=== PATIENT | female | born 1975 | race Caucasian/White ===

== ENCOUNTER 2018-10-28 23:58 | Emergency (ER) | payer MEDICAID ==
[~2018-10-28] VITALS: Ht 154.9 cm; Wt 86.2 kg
[~2018-10-28 23:58] MED LIST: IBUP200C97 PO
[2018-10-29 00:18] VITALS: BP 133/72
--- NOTE | 2018-10-29 00:28 | NUR ---
PT AMBULATED TO THE RESTROOM.
--- NOTE | 2018-10-29 00:32 | NUR ---
PT AMBULATED BACK TO LOBBYKONSTANTIN
--- NOTE | 2018-10-29 00:33 | NUR ---
FLU SWAB WAS COLLECTED AND LAB TO ICK UP.
--- NOTE | 2018-10-29 02:03 | NUR ---
PT AMBULATED TO BED #7
--- NOTE | 2018-10-29 02:05 | NUR ---
42/F PRESENTS TO ED WITH DAUGHTER, C/O PERSISTENT NONPRODUCTIVE COUGH SINCE 1500. REPORTS SORE THROAT. PT DENIES FEVER/CHILLS, N/V. AOX4, GCS 15, RR EVEN AND UNLABORED. LUNG SOUNDS CLEAR BL. HX ARRYTHMIA; DENIES HX OF ASTHMA, HTN, DM. RX METOPROLOL
--- NOTE | 2018-10-29 02:05 | NUR ---
DR CROOK AT BEDSIDE
[2018-10-29] MEDS ORDERED: ACETAMIN/CODEINE 120/12MG-5ML 5 ML UDC PO ONE (02:10)
[2018-10-29 02:29] VITALS: BP 133/72
--- NOTE | 2018-10-29 02:29 | NUR ---
Patient discharged with v/s stable. Written and verbal after care instructions given and explained by Dr. Londono. Patient alert, oriented and verbalized understanding of instructions. Ambulatory with steady gait. All questions addressed prior to discharge by Dr. Londono. ID band removed by Dr. Londono. Patient advised to follow up with PMD by Dr. Londono. Rx of CODEINE/PROMETHAZINE, LEVAQUIN given by Dr. Londono. Patient educated on indication of medication including possible reaction and side effects by Dr. Londono. Opportunity to ask questions provided and answered by Dr. Londono.
== END 2018-10-29 02:29 | disposition home or self-care (01) ==
LOC: MED 23:58
DX: J20.9 Acute bronchitis, unspecified (principal); E11.9 Type 2 diabetes mellitus without complications; Z88.0 Allergy status to penicillin; Z79.899 Other long term (current) drug therapy; Z90.49 Acquired absence of other specified parts of digestive tract
CPT/HCPCS: 87804; 99283

== ENCOUNTER 2020-08-13 12:41 | Emergency (ER) | payer MEDICAID ==
[~2020-08-13] VITALS: Ht 149.9 cm; Wt 71.2 kg
[2020-08-13 12:52] VITALS: BP 112/66
[2020-08-13 12:56] VITALS: BP 112/66
--- NOTE | 2020-08-13 12:57 | NUR ---
triaged and in tent 01
--- NOTE | 2020-08-13 14:13 | NUR ---
Patient discharged with v/s stable. Written and verbal after care instructions given and explained. Patient alert, oriented and verbalized understanding of instructions. Ambulatory with steady gait. All questions addressed prior to discharge. ID band removed. Patient advised to follow up with PMD. Rx of prednisone, tylenol, azithromycin, promethazine given. Patient educated on indication of medication including possible reaction and side effects. Opportunity to ask questions provided and answered.
== END 2020-08-13 14:13 | disposition home or self-care (01) ==
LOC: MED 12:41
DX: U07.1 COVID-19 (principal); I51.9 Heart disease, unspecified; Z90.49 Acquired absence of other specified parts of digestive tract; Z88.0 Allergy status to penicillin
CPT/HCPCS: 71045; 99283